=== PATIENT | female | born 1980 | race Caucasian/White ===

== ENCOUNTER 2018-05-27 10:59 | Emergency (ER) | payer OTHER ==
[~2018-05-27] VITALS: Ht 170.2 cm; Wt 55.0 kg
[2018-05-27 11:17] VITALS: TEMP 37; Ht 170.2 cm; Wt 55.0 kg
[2018-05-27] MEDS ORDERED: RABIES VACCINE (IMOVAX) HUMAN DIPL CELL 2.5 INTER.UNIT/ML SYR IM. ONE (11:45)
[2018-05-27 12:28] VITALS: BP 105/69; PULSE 73; O2SAT 100
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
== END 2018-05-27 12:29 | disposition home or self-care (01) ==
LOC: C.EDB 11:01 → C.EDD 12:29
DX: Z20.3 Contact with and (suspected) exposure to rabies (principal); Z23 Encounter for immunization

== ENCOUNTER 2018-05-31 10:18 | Emergency (ER) | payer OTHER ==
[~2018-05-31] VITALS: Ht 170.2 cm; Wt 53.6 kg
[2018-05-31 10:20] VITALS: BP 130/81; PULSE 88; TEMP 36.7; O2SAT 100; Ht 170.2 cm; Wt 53.6 kg
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
[2018-05-31] MEDS ORDERED: RABIES VACCINE (IMOVAX) HUMAN DIPL CELL 2.5 INTER.UNIT/ML SYR IM. ONE (10:45)
== END 2018-05-31 10:48 | disposition home or self-care (01) ==
LOC: C.EDB 10:18 → C.EDC 10:48
DX: Z23 Encounter for immunization (principal); Z20.3 Contact with and (suspected) exposure to rabies